=== PATIENT | female | born 1945 | race Caucasian/White ===

== ENCOUNTER 2018-03-25 15:26 | Observation (INO) | payer OTHER ==
[2018-03-25] MEDS ORDERED: fentaNYL 100 MCG/2 ML INJ NASAL ONE (15:40)
[2018-03-25] MEDS ORDERED: fentaNYL 100 MCG/2 ML INJ ONE (15:41)
--- NOTE | 2018-03-25 15:41 | EDPHY ---
H & P Stated Complaint: fall r humeral inj Time Seen by Provider: 03/25/18 15:35 HPI/ROS: CHIEF COMPLAINT: Right humerus right shoulder clavicle pain post mechanical fall on ice HISTORY OF PRESENT ILLNESS: 73-year-old female via private vehicle complaining of acute right clavicle shoulder and humerus pain after she slipped on ice landing on her shoulder. No head injury. No paresthesia. No prolonged periods of immobility on the ground. No alcohol or drug use. Non syncopal episode. mode complaining of PRIMARY CARE PROVIDER:Dr. Rosario Erwin REVIEW OF SYSTEMS: 10 systems reviewed and negative with the exception of the elements mentioned in the history of present illness PAST MEDICAL/SURGICAL HISTORY: no anticoagulant use, no relevant medical/ surgical history SOCIAL HISTORY: denies alcohol use at time of incident PHYSICAL EXAM 1) GENERAL: Well-developed, well-nourished, alert and oriented. Appears uncomfortable, crying, hyperventilating.. 2) HEAD: Normocephalic, atraumatic 3) HEENT: Pupils equal, round, reactive to light bilaterally. Negative Horners. Nasopharynx, oropharynx, clear. No deformity or angulation of nose. No septal hematoma. No rhinorrhea. No oral trauma. Ears bilaterally with normal tympanic membranes. No hemotympanum. No fluid or blood in the external auditory canal. No raccoon eyes. No Handy sign. Teeth are normally aligned with no gross malocclusion, TMJ bilaterally nontender, facial bones nontender including the zygomatic arch, maxilla mandible. 4) NECK: No cervical collar is on. Posterior cervical spine is nontender, no stepoff, no effusion. Full range of motion which does not elicit any midline cervical spine pain, no posterior midline tenderness, no step-off. 5) LUNGS: Clear to auscultation bilaterally, no wheezes, no rhonchi, no retractions. No obvious signs of trauma. No chest wall pain. No flaring, no grunting. Moving symmetrically. No crepitus. 6) HEART: [Regular rate and rhythm, 7) ABDOMEN: No guarding, no rebound, no focal tenderness, no peritoneal signs, no signs of trauma, no ecchymosis 8) MUSCULOSKELETAL: Right upper extremity: Tender to palpation right mid clavicle no deformity no tenting intact skin. Tender to palpation right shoulder and proximal humerus with no deformity no angulation intact skin. Radial ulnar median nerve function intact distally. Distal humerus elbow forearm hand wrist nontender with soft compartments. Brisk pulses and capillary refill. No axillary nerve dysfunction. Otherwise, moving all extremities with no focal areas of discomfort or visible trauma. 9) BACK: No midline vertebral tenderness, no fluctuance, no step-off, no obvious trauma, no visual or palpable abnormality. 10) SKIN: No laceration. No abrasion DIFFERENTIAL DIAGNOSIS: In no particular order including but not limited to fracture, sprain, strain, dislocation - Personal History Current Tetanus Diphtheria and Acellular Pertussis (TDAP): Yes - Medical/Surgical History Hx Asthma: No Hx Chronic Respiratory Disease: No Hx Diabetes: No Hx Cardiac Disease: No Hx Renal Disease: No Hx Cirrhosis: No Hx Alcoholism: No Hx HIV/AIDS: No Hx Splenectomy or Spleen Trauma: No Other PMH: hip fx - Social History Smoking Status: Never smoked Constitutional: Initial Vital Signs Temperature (C) 36.8 C 03/25/18 15:27 Heart Rate 76 03/25/18 15:27 Respiratory Rate 17 03/25/18 15:27 Blood Pressure 163/112 H 03/25/18 15:27 O2 Sat (%) 97 03/25/18 15:27 O2 Delivery Mode Room Air Allergies/Adverse Reactions: Penicillins Allergy (Verified 03/25/18 15:27) Home Medications: Medication Instructions Recorded Cholecalciferol Vit D3 [Vitamin D3 2,000 units PO DAILY 03/25/18 (*)] Herbals/Supplements -Info Only 1 ea PO DAILY 03/25/18 Multivitamins [Multivitamin (*)] 1 each PO DAILY 03/25/18 traZODone [traZODONE 50MG (*)] 100 mg PO HS 03/25/18 Medical Decision Making - Diagnostics Imaging Results: Imaging Impressions Humerus X-Ray 03/25/18 15:34 Impression: 1. Oblique moderately displaced proximal right humeral fracture. Clavicle X-Ray 03/25/18 15:39 Impression: 1. Oblique proximal right humeral fracture, better characterized on subsequent x -rays. Shoulder X-Ray 03/25/18 15:45 Impression: Obliquely oriented proximal right humeral fracture with moderate displacement and mild comminution. Images reviewed myself Procedures: Procedure: Splint A upper extremity sling splint was applied by ER electronic calibration technician. After application of the splint I returned and re-examined the patient. The splint was adequately immobilizing the joint and distal to the splint the patient's circulation and sensation were intact. Patient shows no signs of compartment syndrome. Was given orthopedic precautions. ED Course/Re-evaluation: 419 p.m.: Awaiting x-ray results. Patient complaining of continued pain after intranasal fentanyl administered. Will administer IV fentanyl and check x-rays. 4:45 p.m.: I reviewed the patient's x-ray showing a humeral neck fracture. She has been given analgesia at this time, will observe the patient. She would like to be discharged home with a sling. She has recently transition from [employer] to other insurance and she will be given orthopedic referral information. 5:20 p.m. re-evaluation, patient observed ambulating the bathroom without assistance. She does note continued pain. Had a lengthy discussion with her and her . She lives in a home with her bedroom and bathroom on the 1st floor. I have offered admission to the hospital however she declines this stating that she feels she is able to care for self. 5:28 p.m. The and patient inform at this time that the do not feel the patient is able to care for self at home and they are requesting admission to the hospital. I consulted with hospitalist, Dr. Ryder will admit patient request orthopedic consult. 5:33 p.m.: Consultation Dr. Luigi Hudson who will consult Orthopedics Care of patient under supervision of secondary supervising physician Dr Parish with whom I discussed case. - Data Points Medications Given: Acetaminophen (Tylenol) 1,000 mg PO Q8H [facility] Stop: 09/21/18 17:59 Last Admin: 03/25/18 18:40 Dose: 1,000 mg Ondansetron HCl (Zofran) 4 mg IVP Q4HRS PRN PRN Reason: Nausea/Vomiting, Can't Take PO Stop: 09/21/18 17:51 Last Admin: 03/25/18 20:09 Dose: 4 mg Oxycodone HCl (Oxycodone Ir) 5 - 10 mg PO Q3HRS PRN PRN Reason: Pain, Severe Able to Take PO Stop: 04/04/18 17:51 Last Admin: 03/25/18 18:39 Dose: 10 mg Discontinued Medications Fentanyl (Sublimaze) 50 mcg NASAL EDNOW ONE Stop: 03/25/18 15:41 Last Admin: 03/25/18 15:45 Dose: 50 mcg Fentanyl (Sublimaze) 100 mcg IVP EDNOW ONE Stop: 03/25/18 16:19 Last Admin: 03/25/18 16:37 Dose: 100 mcg Fentanyl (Sublimaze) 50 mcg IVP EDNOW ONE Stop: 03/25/18 17:31 Last Admin: 03/25/18 17:30 Dose: 50 mcg Departure - Departure Disposition: Home, Routine, Self-Care Clinical Impression: Fall due to slipping on ice or snow Qualifiers: Encounter type: initial encounter Qualified Code(s): W00.9XXA - Unspecified fall due to ice and snow, initial encounter Fracture of neck of right humerus Qualifiers: Encounter type: initial encounter Fracture type: closed Qualified Code(s): S42.211A - Unspecified displaced fracture of surgical neck of right humerus, initial encounter for closed fracture Condition: Good
[2018-03-25] MEDS ORDERED: fentaNYL 100 MCG/2 ML INJ IVP ONE ×2 (16:18→17:30)
[2018-03-25] MEDS ORDERED: ONDANSETRON 4 MG/2 ML VIAL ONE (17:27)
[2018-03-25] MEDS ORDERED: ACETAMINOPHEN 325 MG TAB PO PRN (17:52)
--- NOTE | 2018-03-25 18:01 | PDGENHP ---
<Justina Orr - Last Filed: 03/25/18 18:17> History and Physical - Chief Complaint Mechanical fall with injury - History of Present Illness This is a 73 y/o female with history of osteoporosis presents to the emergency room after sustaining a mechanical fall with injury today. She was walking her two dogs when all of a sudden, she slipped on ice and landed on her right shoulder. Denies hitting her head or LOC. No lightheadedness, chest pains, or palpitations. Pain is localized to her right shoulder and radiates either up or down and is throbbing. Humerus, clavicle, and shoulder x-ray show oblique moderately displaced proximal right humeral fracture and mild comminution. Initial pain 9/10. With fentanyl and being placed in a stabilizing sling, pain is 7/10. She is being admitted for observation and pain management. Past Medical History 1. Vitamin D deficiency 2. Hyperlipidemia 3. Obesity 4. Myopia 5. Sensorineural hearing loss 6. Recurrent pneumonia 7. Lumbar radiculopathy 8. Osteoporosis 9. Insomnia Past Surgical History 1. Hx of hip fx (~1990) Social 1. , is Donn 2. Denies tobacco use. Rarely drinks etoh (~bottle of wine/month). Has 35 mg of THC @ HS to assist with her insomnia. History Information - Allergies/Home Medication List Allergies/Adverse Reactions: Penicillins Allergy (Verified 03/25/18 15:27) Home Medications: traZODone 03/25/18 [Last Taken Unknown] I have personally reviewed and updated: family history, medical history, social history, surgical history Past Medical History: See HPI list - Surgical History Additional surgical history: See HPI list - Family History Positive for: non-pertinent - Social History Smoking Status: Never smoked Alcohol Use: Rarely Drug Use: Marijuana Review of Systems Review of Systems: ROS: 10pt was reviewed & negative except for what was stated in HPI & below Constitutional: Reports: recent injury EENMT: Reports: no symptoms Cardiac: Reports: no symptoms Respiratory: Reports: no symptoms Gastrointestinal: Reports: no symptoms Genitourinary: Reports: no symptoms Muscolosketal: Reports: joint pain (R shoulder), muscle pain Skin: Reports: no symptoms Neurological: Reports: no symptoms Hematologic/Lymphatic: Reports: no symptoms (PCN) Physical Exam Physical Exam: Imaging reviewed. See HPI for details. Discussed case with Dr. Reinaldo Cook, ED . Temp Pulse Resp BP Pulse Ox 36.8 C 76 17 163/112 H 97 03/25/18 15:27 03/25/18 15:27 03/25/18 15:27 03/25/18 15:27 03/25/18 15:27 Constitutional: no apparent distress, appears nourished, uncomfortable Eyes: PERRL, anicteric sclera, EOMI Ears, Nose, Mouth, Throat: moist mucous membranes, hearing normal, ears appear normal, no oral mucosal ulcers Cardiovascular: regular rate and rhythym, no murmur, rub, or gallop, No edema Peripheral Pulses: 2+: dorsalis-pedis (R) (Radial 1+), dorsalis-pedis (L) ( Radial 1+) Respiratory: no respiratory distress, no rales or rhonchi, clear to auscultation Gastrointestinal: normoactive bowel sounds, soft, non-tender abdomen, no palpable masses Genitourinary: no bladder fullness, no bladder tenderness Skin: warm, normal color, no rashes or abrasions, no fluctuance, no induration, No mottled Musculoskeletal: joint effusion, joint tenderness, pain with ROM (RUE; able to wiggle fingers, strong hand grasp) Neurologic: AAOx3, sensation intact bilaterally, CN II-XII Intact Psychiatric: interacting appropriately, not anxious, not encephalopathic, thought process linear Lymph, Heme, Immunologic: no cervical LAD, no supraclavicular LAD Assessment & Plan Plan: This is a 73 y/o female with a right humeral fracture s/p slipping on ice while walking her dogs earlier today. She has intractable pain. 1. Right humeral fracture: stabilized in sling placed in ED. -Ortho consulted and aware. Dr. Hudson to evaluate. -Keep in sling until ortho evaluates -Monitor neuro -Regular diet now, NPO at midnight tonight as a precaution for possible surgery -CBC/BMP/PT pending -OT to evaluate 2. Intractable pain s/p right humeral fracture -Pain management PO/IVP PRN 3. Nausea: anti-emetics PRN 4. Insomnia: she reports inability to fall asleep without THC and trazodone. -We will continue her trazodone - will retrieve her THC doses which comes in the form of small brownie bites. She reportedly purchases a large THC brownie and cuts it into 4 squares to make it ~35 mg THC per small square. She may take this. Diet: Regular, NPO at midnight VTE ppx: SCDs Code: DNR Dispo: Admit to obs <Didi No - Last Filed: 03/25/18 19:08> History and Physical - History of Present Illness Review of Systems Review of Systems: Physical Exam Physical Exam: Temp Pulse Resp BP Pulse Ox 37.1 C 81 18 164/84 H 94 03/25/18 18:16 03/25/18 18:16 03/25/18 18:16 03/25/18 18:16 03/25/18 18:16 Assessment & Plan Assessment: Fall due to slipping on ice or snow (Acute) Fracture of neck of right humerus (Acute) Plan: Patient seen independently and care plan reviewed with FUAD Orr and agree with her plan as outlined above. Please see separate documentation for further details.
[2018-03-25] MEDS: oxyCODONE IR 5 MG TAB PO PRN ×2 (18:39→22:52)
[2018-03-25] MEDS: ACETAMINOPHEN 500 MG TAB PO SCH (18:40)
--- NOTE | 2018-03-25 19:12 | HOSPPROG ---
Hospitalist Progress Note Assessment/Plan: 73 yo F with osteoporosis and low vitamin D presenting s/p mechanical fall with resultant right humeral fracture # right humeral fracture: arm in a sling, pain management overnight, ortho consulted, will keep NPO after MN in case surgical intervention needed # osteoporosis: continue op mgmt # pain management: patient states that she has very difficult to control pain due to history of multiple surgeries and high pain medication tolerance, will monitor and adjust pain meds as needed # observation status Patient new to my care. Old records reviewed and summarized as above. Care plan reviewed with ER doctor and FUAD Orr, please see her separate H&P for further details. Objective: Vital Signs Temp Pulse Resp BP Pulse Ox 37.1 C 81 18 164/84 H 94 03/25/18 18:16 03/25/18 18:16 03/25/18 18:16 03/25/18 18:16 03/25/18 18:16 ICD10 Worksheet Patient Problems: Problems Problem Status Onset Fall due to slipping on ice or snow Acute Fracture of neck of right humerus Acute
[2018-03-25 19:41] LABS: PLATELET COUNT 260 10^3/uL (150-400)
[2018-03-25 19:55] LABS: INR 0.96 (0.83-1.16)
[2018-03-25] MEDS: HYDROmorphONE/DILAUDID 1 MG/ML INJ IVP PRN (20:00)
[2018-03-25] MEDS: ONDANSETRON 4 MG/2 ML VIAL IVP PRN (20:09)
--- NOTE | 2018-03-25 20:56 | SOAPPROG ---
[place] Progress Note Assessment/Plan: Assessment: R prox humerus fx Plan: NPO at midnight plan orif tomorrow afternoon 03/25/18 20:55 Objective: Vital Signs Temp Pulse Resp BP Pulse Ox 36.8 C 88 19 138/75 H 92 03/25/18 19:42 03/25/18 19:42 03/25/18 19:42 03/25/18 19:42 03/25/18 19:42 Laboratory Results 03/25/18 19:31 03/25/18 19:31 PT 13.0 SEC (12.0-15.0) 03/25/18 19:31 INR 0.96 (0.83-1.16) 03/25/18 19:31 ICD10 Worksheet Patient Problems: Problems Problem Status Onset Fall due to slipping on ice or snow Acute Fracture of neck of right humerus Acute
[2018-03-25 22:08] LABS: HEPATITIS C ANTIBODY TOTAL NEGATIVE (NEGATIVE)
[2018-03-25] MEDS: traZODone 100 MG TAB PO SCH (22:55)
[2018-03-26] MEDS: ONDANSETRON DISINTEGRATING 4 MG TAB PO PRN ×2 (00:37→06:04)
[2018-03-26] MEDS: HYDROmorphONE/DILAUDID 1 MG/ML INJ IVP PRN ×3 (00:37→11:56)
[2018-03-26] MEDS ORDERED: ZOLPIDEM TARTRATE 5 MG TAB PO ONE (00:49)
[2018-03-26] MEDS: ACETAMINOPHEN 500 MG TAB PO SCH ×3 (00:54→18:21)
[2018-03-26] MEDS: oxyCODONE IR 5 MG TAB PO PRN ×2 (03:12→06:05)
[2018-03-26] MEDS: CEPACOL LOZENGE PO PRN (03:36)
[2018-03-26] MEDS: ONDANSETRON 4 MG/2 ML VIAL IVP PRN (06:08)
[2018-03-26] MEDS ORDERED: PROMETHAZINE HCL 25 MG/ML INJ IVP PRN ×2 (07:37→16:15)
[2018-03-26] MEDS ORDERED: NS 1,000 ML IV SCH (07:45)
--- NOTE | 2018-03-26 09:54 | ASMTCMCOM ---
CM Note CM Note Notes: Pt is a 73 y/o female admitted for a mechanical fall with injury. Pt will have surgery tomorrow afternoon. OT has been ordered and awaiting recommendations. Needs are TBD at this time. Pt previously living independent with her and two dogs. CM to follow. Plan: TBD Date Signed: 03/26/2018 09:54 AM Electronically Signed By:DINA Ramirez
--- NOTE | 2018-03-26 10:20 | GCON ---
[f rep st] CONSULTATION DATE OF CONSULTATION: 03/25/2018 CHIEF COMPLAINT: Right proximal humerus fracture. HISTORY OF PRESENT ILLNESS: A 73-year-old female, who was walking her dogs. She slipped, and landed directly on the right shoulder. She had intense pain, inability to move the shoulder, was unable to get up, and she was brought to the emergency room. She complains of severe pain in the shoulder. She complains of feeling the bones move whenever she tries to move the arm at all. Her pain is controlled by not moving. PAST MEDICAL HISTORY: 1. Vitamin D deficiency. 2. Hyperlipidemia. 3. Obesity. 5. Lumbar radiculopathy. 6. Insomnia. PAST SURGICAL HISTORY: 1. Hip fracture. 2. She also has a history of multiple orthopedic lower extremity fractures including numerous fractures. SOCIAL HISTORY: She denies tobacco use. ALLERGIES: Penicillins. MEDICATIONS: Trazodone. FAMILY HISTORY: Reviewed, and noncontributory. REVIEW OF SYSTEMS: A 10-point review of systems is reviewed, and noncontributory. PHYSICAL EXAM: VITALS: Stable. GENERAL: She is alert, oriented, appropriate , in no acute distress. HEAD: Atraumatic. Her eyes are equal and reactive. NECK: Supple. Mouth: Shows mucous membranes. CARDIOVASCULAR: Regular rate and rhythm. RESPIRATORY: She is in no respiratory distress. ABDOMEN: Soft. SKIN: Intact. EXTREMITIES: Right upper extremity, she holds in a sling. Any attempted shoulder motion causes excruciating pain. She is tender over the shoulder. She is not tender at the elbow. She can range her elbow with flexion , extension. Range her wrist, and her hand. She is neurovascularly intact in that hand with good strength in median, ulnar, and radial nerve distribution. Left upper extremity is without abnormality, with good range of motion, neurovascularly intact. Good sensation. Lower extremities she moves well with no pain, and good motion. She is neurovascularly intact. IMAGING: Radiographs show a displaced proximal humerus fracture of the surgical neck. The lateral x-ray shows near complete displacement of the shaft , and head fragment. ASSESSMENT: Right proximal humerus fracture. PLAN: I discussed her condition, and treatment options with her. Discussed both operative, and nonoperative treatment. Her alignment on the AP looks pretty good. Her alignment on the lateral is not as good, and she is displaced. She can also feel these move, and the bones feel unstable with any motion, this causes her excruciating pain. She is dependent on her arm for her mobility from getting in and out of chairs, bathtub, and she does use a cane. Given these concerns, and instability of the fracture, we discussed an operative intervention. This would be an ORIF of her proximal humerus. We discussed risks of nerve injury, particularly the axillary nerve, nonunion, malunion, continued pain, and hardware prominence, need for hardware removal, and she elected to proceed. She will be n.p.o. at midnight, and will make surgical arrangements. /[id number]/MODL MTDD
--- NOTE | 2018-03-26 13:27 | SOAPPROG ---
[place] Progress Note Assessment/Plan: Assessment: R prox humerus fx Plan: orif this afternoon consent obtained 03/25/18 20:55 03/26/18 13:26 Subjective: pain in right shoulder Objective: Vital Signs Temp Pulse Resp BP Pulse Ox 37.3 C 87 16 122/74 H 93 03/26/18 12:00 03/26/18 12:00 03/26/18 12:00 03/26/18 12:00 03/26/18 12:00 Laboratory Results 03/26/18 05:20 03/26/18 05:20 PT 13.0 SEC (12.0-15.0) 03/25/18 19:31 INR 0.96 (0.83-1.16) 03/25/18 19:31 R hand nvi R shoulder ttp ICD10 Worksheet Patient Problems: Problems Problem Status Onset Fall due to slipping on ice or snow Acute Fracture of neck of right humerus Acute
[2018-03-26] MEDS ORDERED: BUPIVACAINE/EPI 0.5% 30 ML SDV ONE (14:15)
[2018-03-26] MEDS ORDERED: LR 1,000 ML IV ONE (14:44)
--- NOTE | 2018-03-26 14:50 | HOSPPROG ---
Hospitalist Progress Note Assessment/Plan: 73 yo F with osteoporosis and low vitamin D presenting s/p mechanical fall with resultant right humeral fracture. First encounter, chart reviewed. # right humeral fracture - arm in a sling, surgery today # osteoporosis: continue op mgmt # pain management -concern it is difficult to control pain due to history of multiple surgeries and high pain medication tolerance -will monitor #HTN -bp elevated likely due to pain #Plan: OR now/ she will require another midnight due to going to OR late this afternoon. Hopefully, can dc in the morning Subjective: Ashwini is relieved she is having surgery. Objective: Vital Signs Temp Pulse Resp BP Pulse Ox 37.3 C 87 16 122/74 H 93 03/26/18 13:39 03/26/18 13:39 03/26/18 13:39 03/26/18 13:39 03/26/18 13:39 Laboratory Results 03/26/18 05:20 03/26/18 05:20 PT 13.0 SEC (12.0-15.0) 03/25/18 19:31 INR 0.96 (0.83-1.16) 03/25/18 19:31 - Physical Exam Constitutional: no apparent distress, uncomfortable Eyes: PERRL Ears, Nose, Mouth, Throat: hearing normal Cardiovascular: regular rate and rhythym Respiratory: no respiratory distress Gastrointestinal: normoactive bowel sounds Skin: warm Musculoskeletal: other (right arm in sling, good cms) Neurologic: AAOx3 Psychiatric: interacting appropriately ICD10 Worksheet Patient Problems: Problems Problem Status Onset Fall due to slipping on ice or snow Acute Fracture of neck of right humerus Acute
--- NOTE | 2018-03-26 15:18 | PDANEPAE ---
[facility] Past Medical History - Cardiovascular History Hx Hypertension: No Hx Arrhythmias: No Hx Chest Pain: No Hx Coronary Artery / Peripheral Vascular Disease: No Hx CHF / Valvular Disease: No Hx Palpitations: No - Pulmonary History Hx COPD: No Hx Asthma/Reactive Airway Disease: No Hx Recent Upper Respiratory Infection: No Hx Oxygen in Use at Home: No Hx Sleep Apnea: No Sleep Apnea Screening Result - Last Documented: Negative - Endocrine History Hx Diabetes: No Hypothyroid: No Hyperthyroid: No Obesity: yes, mild - GI History GERD: no Hx Gastrointestinal Disorders: No - Chronic Pain History Chronic Pain: No ANE Review of Systems Review of Systems: - Exercise capacity Exercise capacity: <4 METS ANE Patient History - Allergies Allergies/Adverse Reactions: Penicillins Allergy (Verified 03/26/18 15:05) Hives - Home Medications Home Medications: Cholecalciferol Vit D3 [Vitamin D3 (*)] 2,000 units PO DAILY 03/25/18 [Last Taken 03/25/18] Herbals/Supplements -Info Only 1 ea PO DAILY 03/25/18 [Last Taken Unknown] Multivitamins [Multivitamin (*)] 1 each PO DAILY 03/25/18 [Last Taken 03/25/18] traZODone [traZODONE 50MG (*)] 100 mg PO HS 03/25/18 [Last Taken 03/24/18] - NPO status NPO Since - Liquids (Date): 03/25/18 NPO Since - Liquids (Time): 23:59 NPO Since - Solids (Date): 03/25/18 NPO Since - Solids (Time): 12:00 - Anes Hx Anes Hx: post operative nausea and vomiting - Smoking Hx Smoking Status: Current some day smoker Marijuana use: No - Alcohol Use Alcohol Use: Rarely - Family Anes Hx Family Anes Hx: neg - N/A ANE Labs/Vital Signs - Labs Result Diagrams: 03/26/18 05:20 03/26/18 05:20 - Vital Signs Blood Pressure: 171/95 Heart Rate: 96 Respiratory Rate: 16 O2 Sat (%): 93 Height: 170.18 cm Weight: 88.451 kg ANE Physical Exam - Airway Neck exam: decreased ROM Mallampati Score: Class 3 Mouth exam: normal dental/mouth exam - Pulmonary Pulmonary: no respiratory distress, no rales or rhonchi, clear to auscultation - Cardiovascular Cardiovascular: regular rate and rhythym, no murmur, rub, or gallop - ASA Status ASA Status: II ANE Anesthesia Plan Anesthesia Plan: general endotracheal anesthesia Regional Anesthesia: supraclavicular BP NB Total IV Anesthesia: No
[2018-03-26] MEDS ORDERED: fentaNYL 100 MCG/2 ML INJ ONE (15:33)
[2018-03-26] MEDS ORDERED: PROPOFOL 200 MG/20 ML VIAL ONE (15:34)
[2018-03-26] MEDS ORDERED: ONDANSETRON 4 MG/2 ML VIAL ONE (15:34)
[2018-03-26] MEDS ORDERED: DEXAMETHASONE 4 MG/ML VIAL ONE (15:35)
[2018-03-26] MEDS ORDERED: LIDOCAINE 2% 5 ML SDV ONE (15:37)
[2018-03-26] MEDS ORDERED: ROPIVACAINE HCL 150 MG/30 ML INJ ONE (15:39)
[2018-03-26] MEDS ORDERED: PHENYLEPHRINE HCL 100 MCG/ML SYR ONE (15:44)
[2018-03-26] MEDS ORDERED: CEFAZOLIN 1 GM/DEXTROSE/50 ML BAG IV ONE (16:07)
[2018-03-26] MEDS ORDERED: ACETAMINOPHEN 500 MG TAB PO PRN (16:15)
[2018-03-26] MEDS ORDERED: PHENYLEPHRINE HCL 100 MCG/ML SYR IVP PRN (16:15)
[2018-03-26] MEDS ORDERED: ONDANSETRON 4 MG/2 ML VIAL IVP PRN (16:15)
[2018-03-26] MEDS ORDERED: NALOXONE HCL 0.4 MG/ML INJ IVP PRN (16:15)
[2018-03-26] MEDS ORDERED: HYDROCODONE/APAP 5/325 TAB PO PRN (16:15)
[2018-03-26] MEDS ORDERED: LR 500 ML IV PRN (16:15)
--- NOTE | 2018-03-26 17:25 | POSTOPPROG ---
Post Op Note Date of Operation: 03/26/18 Surgeon: Luigi Hudson Manager Audio: none Anesthesiologist: Pio Anesthesia: GET(General Endotracheal) Pre-op Diagnosis: R prox humerus fx Post-op Diagnosis: same Indication: same Procedure: R prox humerus orif Inf/Abcess present in the surg proc area at time of surgery?: No EBL: 50-100
--- NOTE | 2018-03-26 17:30 | POSTANESTH ---
Post Anesthetic Evaluation Cardiovascular Status: Similar to Pre-Op Cond Respiratory Status: Normal, Stable Level of Consciousness/Mental Status: Can Participate in Eval Pain Control: Adequate, Prn Tx Ordered Nausea/Vomiting Control: Adequate, Prn Tx Ordered Complications Possibly Related to Anesthesia: None Noted
[2018-03-26] MEDS ORDERED: PROMETHAZINE HCL 25 MG/ML INJ ONE (17:31)
--- NOTE | 2018-03-26 20:42 | GOP ---
[f rep st] OPERATIVE REPORT DATE OF OPERATION: 03/26/2018 SURGEON: Luigi Hudson MD COOK MAYONNAISE: None. ANESTHESIA: General with scalene block for postop pain control. PREOPERATIVE DIAGNOSIS: Right proximal humerus fracture. POSTOPERATIVE DIAGNOSIS: Right proximal humerus fracture. PROCEDURE PERFORMED: Open reduction and internal fixation, right proximal humerus. FINDINGS: SPECIMENS: None. ESTIMATED BLOOD LOSS: 100 mL. INDICATIONS: This is a female with displaced proximal humerus fracture. I discussed both operative and nonoperative treatment with her. She is dependent on the arm for mobility. She had wide displac ement and excruciating pain with any movement of the arm and felt the fragments moving around. She e lected for surgical intervention. We discussed risks of nonunion, malunion, hardware prominence, nee d for screw removal, continued pain, and she elected to proceed. Informed consent obtained. All que stions were answered. She was marked preoperatively. DESCRIPTION OF PROCEDURE: She was taken to the operative suite, sterilely prepped and draped in the usual fashion. Time-out was performed verifying the site, side, location and agreed upon by all memb ers of the team. I injected the incision with 0.5% Marcaine with epinephrine. Made the incision. Performed an anteri or approach to the shoulder in deltopectoral interval. I isolated the fracture. The fracture was co mminuted and widely displaced and shortened. I was able to manipulate the fragments back into place and hold these provisional with K-wires. I selected the plate and placed this and used K-wires and c hecked this fluoroscopically. I then placed a locking screw in the shaft and then locking screws in the head and then more cortical screws in the shaft. I checked the reduction, as well as used live naun giraldo to make sure the screws were not in the joint. I was happy with the overall reduction, alignme nt, fixation, and this moved well as a unit. She tolerated the procedure well. She has irrigated, c losed with 0 Vicryl, 2-0 Vicryl, 3-0 Quill, and Dermabond. She was taken to PACU in stable condition . IMPLANT: Synthes anterior proximal humerus plate, with locking and nonlocking screws. COMPLICATIONS: None. DRAINS: None. CONDITION: Stable. /[id number]/MODL
[2018-03-26] MEDS ORDERED: ZOLPIDEM TARTRATE 5 MG TAB PO SCH (21:30)
[2018-03-26] MEDS: traZODone 100 MG TAB PO SCH (21:34)
[2018-03-27] MEDS: ACETAMINOPHEN 500 MG TAB PO SCH ×2 (00:58→10:41)
[2018-03-27] MEDS: CEPACOL LOZENGE PO PRN (05:52)
[2018-03-27 07:31] VITALS: BP 120/73
[2018-03-27] MEDS: oxyCODONE IR 5 MG TAB PO PRN ×2 (07:37→10:40)
[2018-03-27] MEDS ORDERED: CHOLECALCIFEROL VIT D3 2,000 UNITS TAB/CAP PO SCH (09:00)
--- NOTE | 2018-03-27 10:40 | HOSPPROG ---
Hospitalist Progress Note Assessment/Plan: 73 yo F with osteoporosis and low vitamin D presenting s/p mechanical fall with resultant right humeral fracture. # right humeral fracture - s/p ORIF w Dr Hudson # osteoporosis: continue op mgmt # pain management -concern it is difficult to control pain due to history of multiple surgeries and high pain medication tolerance -will monitor #HTN -bp elevated likely due to pain -stable this a.m. #Plan: dc home w f/u w Dr Hudson Subjective: Ashwini has pain well managed, no complaints. Objective: Vital Signs Temp Pulse Resp BP Pulse Ox 37.2 C 84 16 120/73 100 03/27/18 07:29 03/27/18 07:29 03/27/18 05:22 03/27/18 07:29 03/27/18 07:29 Laboratory Results 03/26/18 05:20 03/26/18 05:20 03/26/18 03/27/18 03/28/18 05:59 05:59 05:59 Intake Total 1020 Output Total 300 Balance 720 PT 13.0 SEC (12.0-15.0) 03/25/18 19:31 INR 0.96 (0.83-1.16) 03/25/18 19:31 - Physical Exam Constitutional: no apparent distress, appears nourished, not in pain Eyes: PERRL Ears, Nose, Mouth, Throat: hearing normal Respiratory: no respiratory distress Skin: warm Musculoskeletal: other (right arm in sling) Neurologic: AAOx3 Psychiatric: interacting appropriately ICD10 Worksheet Patient Problems: Problems Problem Status Onset Fall due to slipping on ice or snow Acute Fracture of neck of right humerus Acute
[2018-03-27] MEDS ORDERED: POLYETHYLENE GLYCOL 3350 17 GM PKT PO PRN (10:56)
[2018-03-27] MEDS ORDERED: MAGNESIUM HYDROXIDE 30 ML UDCUP PO PRN (10:56)
[2018-03-27] MEDS ORDERED: BISACODYL 10 MG SUPP PR PRN (10:56)
[2018-03-27] MEDS ORDERED: LACTULOSE 20 GM/30 ML UDCUP PO PRN (10:56)
[2018-03-27] MEDS ORDERED: SENNOSIDES/DOCUSATE SODIUM TAB PO SCH (11:00)
--- NOTE | 2018-03-27 11:23 | SOAPPROG ---
SOAP Progress Note Assessment/Plan: Assessment: R prox humerus fx orif 03/26 Plan: Right arm rom as tolerated 5lbs wt limit keep dressing on may shower sling for comfort Subjective: mild pain in right shoulder Objective: Vital Signs Temp Pulse Resp BP Pulse Ox 37.2 C 84 16 120/73 100 03/27/18 07:29 03/27/18 07:29 03/27/18 05:22 03/27/18 07:29 03/27/18 07:29 Laboratory Results 03/26/18 05:20 03/26/18 05:20 03/26/18 03/27/18 03/28/18 05:59 05:59 05:59 Intake Total 1020 Output Total 300 Balance 720 PT 13.0 SEC (12.0-15.0) 03/25/18 19:31 INR 0.96 (0.83-1.16) 03/25/18 19:31 dressing mild drainage hand nvi ICD10 Worksheet Patient Problems: Problems Problem Status Onset Fall due to slipping on ice or snow Acute Fracture of neck of right humerus Acute
--- NOTE | 2018-03-27 11:31 | ASMTCMCOM ---
CM Note CM Note Notes: Spoke w/REGULATORY COMPLIANCE OFFICER, pt declines homecare. Will discharge home w/support of and 2 dogs, CM available for any changes. DC Plan: Independent Date Signed: 03/27/2018 11:31 AM Electronically Signed By:Michelle Martinez RN
--- NOTE | 2018-03-27 11:32 | ASMTLACE ---
ROBE Length of stay for Answers: 2 days current admission Acuity / Level of Answers: No Care: Did the patient have an inpatient admission? Comorbidities - select Answers: Other Notes: HLD all that apply # of Emergency department Answers: 1-2 visits in the last 6 months Score: 4 Date Signed: 03/27/2018 11:32 AM Electronically Signed By:Michelle Martinez RN
--- NOTE | 2018-03-27 12:57 | GDS ---
[f rep st] DISCHARGE SUMMARY DISCHARGE DIAGNOSES: 1. Right humeral fracture status post open reduction internal fixation. 2. Osteoporosis. 3. Pain due to this. 4. Hypertension. CONSULTATION: Dr. Hudson. HISTORY: Briefly, the patient is a 73-year-old female with a history of osteoporosis and low vitamin D. She presented after she fell with a resultant right humeral fracture. She was seen and evaluate d by Dr. Hudson. She had an ORIF performed on March 26. Her pain is well managed. Today, she w ill be discharged home with followup care with Dr. Hudson. She prefers no home care at this time. HOSPITAL COURSE BY PROBLEM: 1. Right humeral fracture, status post ORIF. 2. Osteoporosis, continue outpatient management. 3. Pain due to the right humeral fracture. This is well monitored on Oxy. 4. Hypertension. This was due to pain. Her blood pressure has been stable. DISCHARGE CONDITION: Stable. Vital signs: Blood pressure is 120/73, heart rate of 84, respiratory rate of 16, O2 sats on room air 95%, temperature is 37.2 Celsius. MEDICATIONS AT DISCHARGE: Please see the EMR. DISCHARGE INSTRUCTIONS: 1. Right arm range of motion as tolerated, 5 pound weight limit. 2. Sling for comfort. 3. Take the Oxy-IR as needed for pain; do not drink or drive while on this medication. Do take stoo l softeners while on this medication daily. 4. Take Tylenol scheduled for the next several days. Copy requested to: Dr. Hudson /[id number]/MODL
[2018-03-28] MEDS ORDERED: MULTIVITAMINS 1 EACH TAB PO SCH (09:00)
== END 2018-03-27 12:35 | disposition home or self-care (01) ==
LOC: F3N 18:09
PROVIDERS: ADMIT Internal Medicine; ATTEND Internal Medicine
DX: M80.821A Other osteoporosis with current pathological fracture, right humerus, initial encounter for fracture (principal); W00.0XXA Fall on same level due to ice and snow, initial encounter; Y93.K1 Activity, walking an animal; Y92.9 Unspecified place or not applicable; G47.00 Insomnia, unspecified; E78.5 Hyperlipidemia, unspecified; E66.9 Obesity, unspecified; H52.10 Myopia, unspecified eye; M54.16 Radiculopathy, lumbar region; Z88.0 Allergy status to penicillin; Z87.310 Personal history of (healed) osteoporosis fracture
CPT/HCPCS: 23615; 73000; 73030; 73060; 96374; 96375; 96376; 97165; 99285; C1713; C1769; G0378; J0690; J1100; J1170; J2370; J2405; J2550; J2704; J2795; J3010; G0472